=== PATIENT | female | born 1965 | race Caucasian/White ===

== ENCOUNTER → 2018-03-27 13:43 | Outpatient (CLI) | payer OTHER, SELFPAY | PROVIDERS: PCP Family Medicine; Visit Provider Family Medicine | DX: R20.0 Anesthesia of skin (principal) | CPT/HCPCS: 95886; 95911 ==

== ENCOUNTER 2019-01-12 07:19 | Emergency (ER) | payer OTHER, SELFPAY ==
[2019-01-12 07:28] VITALS: BP 152/90; PULSE 76; RESP 13; TEMP 36.8; O2SAT 99
--- NOTE | 2019-01-12 07:47 | ED_ITS ---
HPI - Extremity Problem General Chief complaint: Extremity Problem,Nontraumatic Stated complaint: PAIN LEFT SHOULDER NO INJURY Time Seen by Provider: 01/12/19 07:23 Source: patient Mode of arrival: ambulatory Limitations: no limitations History of Present Illness HPI Narrative: 53-year-old female here for evaluation of left shoulder pain. Patient states that she has had some soreness in her left shoulder for the past week but last evening the pain started to worsen. She states that she had difficulty sleeping last night. Has pain with movement of her arm. No chest pain. No problems breathing. Has not tried anything for the symptoms prior to arrival. No prior injury to the left shoulder. Related Data Previous Rx's Medication Instructions Recorded ondansetron 4 mg PO Q6H PRN #14 tab 01/12/19 tramadol [Ultram] 50 mg PO Q6H PRN #14 tab 01/12/19 Allergies Allergy/AdvReac Type Severity Reaction Status Date / Time acetaminophen [From Percocet] Allergy Verified 01/12/19 07:33 oxycodone [From Percocet] Allergy Verified 01/12/19 07:33 Review of Systems Constitutional Denies fever(s) and Denies headache(s) ENT Ears, Nose, Mouth, and Throat: Denies headache(s) Cardiovascular Denies chest pain and Denies dyspnea Respiratory Denies dyspnea Gastrointestinal Gastrointestinal: Denies abdominal pain Musculoskeletal Comments: Left shoulder pain Integumentary/Breasts Denies new lesions and Denies rash Neurologic Denies headache(s) Comments: Tingling to the left hand some of this may not be new Hematologic/Lymphatic Denies easy bleeding and Denies easy bruising [facility] Medical History Patient denies medical problems (Acute) Social History marital status: lives independently: Yes Social History marital status: lives independently: Yes Exam Initial Vital Signs Initial Vital Signs: Vital Signs Temperature 98.2 F 01/12/19 07:28 Pulse Rate 76 01/12/19 07:28 Respiratory Rate 13 01/12/19 07:28 Blood Pressure 152/90 H 01/12/19 07:28 Pulse Oximetry 99 01/12/19 07:28 Const General: cooperative, well developed, well groomed and No acute distress Orientation: alert, awake and oriented x3 HENMT Head: normal to inspection and normocephalic Cardio Pulses: radial pulses present on the left Skin Lesions: no lesions Rashes: no rashes Neuro Cognition: normal cognition Speech: speech normal Extrem General: normal to inspection and capillary refill normal Other: Patient without tenderness to palpation over the AC joint or the distal clavicle or the posterior shoulder over the deltoid. Passive range of motion limited to 90? secondary to pain. Active range of motion limited to 90? in fle xion and abduction secondary to pain. Patient does have a positive Harper's test. Negative dropped can test. Negative Neer test. Psych Appearance: grossly normal and well kempt Course Vital Signs - 8 hr 01/12/19 07:28 Temperature 98.2 F Pulse Rate 76 Respiratory Rate 13 Blood Pressure 152/90 H Pulse Oximetry 99 MDM - Extremity (Nontraumatic) MDM Narrative Medical decision making narrative: Low suspicion for bony injury. Will hold on x-ray. I do suspect that she has injured her rotator cuff. I do not suspect that it is a complete tear given the fact that she can abduct her shoulder. No fevers. No skin changes. She is neurovascularly intact. I do suspect that this is a soft tissue injury most likely a rotator cuff injury. Will hold on putting her in a sling. We did discuss the use of anti-inflammatories. Will send home with a short prescription for some Ultram. Informed her that if her symptoms do not improve that she should talk with her primary doctor about physical therapy. She expressed understanding and agreement with plan. Patient's allergy to Percocet was vomiting. She states that she has never had an allergy to tramadol Discharge Plan Departure Patient Disposition: Home Clinical Impression: Acute pain of left shoulder Instructions: DI for Shoulder Pain, Rotator Cuff Injury Activity Restrictions/Additional Instructions: I do recommend that you take any anti-inflammatories such as Motrin or Naprosyn as directed. Be sure to take this with some food. You can use the Ultram as needed for any breakthrough pain. I do recommend that you keep your shoulder as mobile as possible. Contact your primary doctor about referral to see physical therapy. Prescriptions: New tramadol [Ultram] 50 mg tablet 50 mg PO Q6H PRN (Reason: pain) Qty: 14 RF: 0 ondansetron 4 mg tablet,disintegrating 4 mg PO Q6H PRN (Reason: nausea and vomiting) Qty: 14 RF: 0 Referrals: Baldev Rodriguez MD [Primary Care Provider] -
[2019-01-12] MEDS: IBUPROFEN 400 MG TABLET PO (08:10)
== END 2019-01-12 08:32 | disposition home or self-care (01) ==
PROVIDERS: Emergency Provider Emergency Medicine; PCP Family Medicine
DX: M25.512 Pain in left shoulder (principal)
CPT/HCPCS: 99282; 99283

== ENCOUNTER → 2020-08-15 11:16 | Outpatient (CLI) | payer OTHER, SELFPAY ==
--- NOTE | 2020-08-15 11:20 | DI.RAD.S_ITS ---
PROCEDURE: XR WRIST RT MIN 3V INDICATIONS: RT WRIST PAIN TECHNIQUE: 3 views of the wrist were acquired. COMPARISON: None. FINDINGS: Bones: No fractures or dislocations. No suspicious bony lesions. Scaphoid view: Not obtained and the scaphoid shows significant distal degenerative osteoarthritis against the base of the trapezium. Soft tissues: No suspicious soft tissue calcifications. 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 No acute trauma found. No infection or neoplasm suspected. Dictated by: Atul Pascal M.D. on 08/15/2020 at 12:51 Approved by: Atul Pascal M.D. on 08/15/2020 at 12:51
== END ==
PROVIDERS: PCP Family Medicine; Referring Provider Family Medicine; Visit Provider Family Medicine
DX: M25.531 Pain in right wrist (principal); M19.031 Primary osteoarthritis, right wrist
CPT/HCPCS: 73110